=== PATIENT | male | born 1945 | race Caucasian/White ===

== ENCOUNTER → 2019-09-13 | Outpatient (CLI) | payer OTHER ==
--- NOTE | 2019-09-13 13:51 | RAD ---
Left lower extremity venous duplex study 09/13/2019 Clinical History: Lower extremity pain and edema Technique: Using a combination of real time ultrasound imaging and color-flow and pulse Doppler imaging techniques, including spectral analysis, graded compression and augmentation, duplex evaluation of the deep venous system of the left lower extremity was performed. Multiple images were obtained. Findings: There is no sonographic evidence of deep venous thrombosis involving the visualized deep venous structures of the left lower extremity. In the subcutaneous tissues of the left leg is a narrow collection measuring 4.5 x 0.8 x 2.7 cm. The collection is complex, but overall hypoechoic without internal blood flow on color Doppler imaging. Differential considerations include a hematoma, or in the appropriate setting an abscess. Lack of surrounding hyperemia favors the former. Impression: 1.No evidence of deep venous thrombosis involving the left lower extremity 2. 4.5 x 0.8 x 2.7 cm collection in the subcutaneous tissues of the proximal left leg. Differential considerations include hematoma versus abscess, as described Electronically signed by: Jamison Spear MD (09/13/2019 1:48 PM) [id number]
== END | disposition home or self-care (01) ==
LOC: US 12:22
PROVIDERS: ATTEND Family Medicine
DX: M79.89 Other specified soft tissue disorders (principal)
CPT/HCPCS: 93971